=== PATIENT | female | born 1990 | race Hispanic/Latino ===

== ENCOUNTER 2017-11-22 20:53 | Emergency (ER) | payer SELFPAY ==
[2017-11-22 21:56] LABS: #Basophils 0.1 thou/uL (0.0-0.2); #Eosinphils 0.1 thou/uL (0.0-0.7); #Lymphocytes 1.9 thou/uL (1.20-3.40); #Monocytes 0.6 thou/uL (0.11-0.59); #Neutrophils 7.3 thou/uL (1.40-6.50); %Basophils 0.9 % (0.0-1.0); %Eosinophils 0.8 % (0.0-10.0); %Lymphocytes 19.3 % (21.0-51.0); %Monocytes 5.9 % (0.0-10.0); %Neutrophils 73.2 % (42.0-75.0); Hemoglobin 13.8 g/dL (12.0-16.0); Mean Corpuscular HGB CONC 34.3 g/dL (32.0-36.0); Mean Corpuscular Hemoglobin 30.1 pg (27.0-31.0); Mean Corpuscular Volume 87.8 fl (81.0-99.0); Mean Platelet Volume 8.9 fL (7.4-10.4); Platelet Count 247 thou/uL (130-400); RBC Distribution Width 11.5 % (11.5-14.5); Red Blood Cell (RBC) Count 4.57 mill/uL (4.20-5.40)
[2017-11-22 22:10] LABS: ALT (SGPT) 15 U/L (8-55); AST (SGOT) 20 U/L (5-34); Albumin 4.6 g/dL (3.5-5.0); Alkaline Phosphatase 92 U/L (40-150); Anion Gap 15 mmol/L (10-20); BUN (Urea Nitrogen) 7 mg/dL (7.0-18.7); Bilirubin, Total 0.5 mg/dL (0.2-1.2); Calc. Creatinine Clearance 0 mL/min (70-130); Calcium 9.9 mg/dL (7.8-10.44); Carbon Dioxide 22 mmol/L (22-29); Chloride 106 mmol/L (98-107); Estimated GFR-MDRD Greater than 90; Globulin 3.3 g/dL (2.4-3.5); Glucose 92 mg/dL (70-105); Potassium 3.5 mmol/L (3.5-5.1); Protein, Total 7.9 g/dL (6.0-8.3); Sodium 139 mmol/L (136-145)
[2017-11-22 22:15] LABS: CKMB 0.3 ng/mL (0-6.6); Troponin I Less than 0.010 ng/mL (< 0.028)
[2017-11-22 22:21] LABS: Acetaminophen Less than 6.0 mcg/mL (10.0-30.0); Alcohol Less than 10 mg/dL (Less than 10); Salicylate Less than 8.0 mg/dL (15.0-30.0)
--- NOTE | 2017-11-22 22:30 | RAD ---
SINGLE VIEW OF THE CHEST 11/22/17 COMPARISON: None. HISTORY: Shortness of breath and syncope. FINDINGS: Single view of the chest shows a normal sized cardiomediastinal silhouette. There is no evidence of c onsolidation, mass, or pleural effusion. The bones are unremarkable. IMPRESSION: No evidence of acute cardiopulmonary disease. POS: [facility]
[2017-11-22] MEDS ORDERED: Acetaminophen 500 MG TAB ONE (22:31)
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
[2017-11-23 00:21] LABS: Bilirubin Negative (Negative); Blood, Urine Negative (Negative); Clarity CLEAR (Clear); Glucose, Urine (Dipstick) Negative (Negative); Leukocyte Negative (Negative); Nitrite Negative (Negative); Pregnancy Test - Urine (BHCG) Negative (Negative); Pregu Control Background? CLEAR/WHITE (CLR/WHITE); Pregu Control Bar Appear? YES (CONTROL BAR); Protein, Urine (Dipstick) Negative (Neg-Trace); Specific Gravity, Urine 1.007 (1.002-1.036); Urobilinogen 0.2 mg/dL (0.2-1.0); pH, Urine 8.5 (5.0-9.0)
[2017-11-23 00:22] LABS: Specific Gravity 1.007 (1.002-1.036)
[2017-11-23 00:30] LABS: Amphetamine Not Detected (NotDetected); Barbiturates Screen Not Detected (NotDetected); Benzodiazepine Screen Not Detected (NotDetected); Cocaine Metabolite Screen Not Detected (NotDetected); Medtox Control Line Valid? VALID (VALID); Medtox Reader # READER 4; Methadone Not Detected (NotDetected); Methamphetamine Not Detected (NotDetected); Opiate Screen Not Detected (NotDetected); Oxycodone Screen Not Detected (NotDetected); Phencyclidine (PCP) Not Detected (NotDetected); THC/Cannabinoid Screen Not Detected (NotDetected); Tricyclic Screen Not Detected (NotDetected)
== END 2017-11-23 01:04 | disposition home or self-care (01) ==
LOC: ERS 20:53
DX: S06.9X9A Unspecified intracranial injury with loss of consciousness of unspecified duration, initial encounter (principal); F07.81 Postconcussional syndrome; J45.909 Unspecified asthma, uncomplicated; F17.210 Nicotine dependence, cigarettes, uncomplicated; W22.8XXA Striking against or struck by other objects, initial encounter; Y92.815 Train as the place of occurrence of the external cause
CPT/HCPCS: 70450; 71045; 72125; 80053; 80306; 80307; 81003; 81025; 82553; 84443; 84484; 85025; 93005; 96360; 96361

== ENCOUNTER 2021-11-09 09:20 | Inpatient (IN) | payer SELFPAY ==
[~2021-11-09 09:20] MED LIST: Iopamidol-370 76% 500 ML 1 ML ONE
[2021-11-09 09:44] LABS: #Eosinphils 0.3 thou/uL (0.0-0.7); #Lymphocytes 2.6 thou/uL (1.20-3.40); #Monocytes 0.5 thou/uL (0.11-0.59); #Neutrophils 4.6 thou/uL (1.40-6.50); %Basophils 0.4 % (0.0-1.0); %Eosinophils 3.4 % (0.0-10.0); %Lymphocytes 32.7 % (21.0-51.0); %Neutrophils 57.5 % (42.0-75.0); Hemoglobin 14.6 g/dL (12.0-16.0); Mean Corpuscular HGB CONC 34.4 g/dL (32.0-36.0); Mean Corpuscular Hemoglobin 30.9 pg (27.0-31.0); Mean Corpuscular Volume 89.8 fL (78.0-98.0); Mean Platelet Volume 7.9 fL (7.4-10.4); Platelet Count 260 thou/uL (130-400); Red Blood Cell (RBC) Count 4.75 mill/uL (4.20-5.40); White Blood Cell (WBC) Count 7.9 thou/uL (4.8-10.8)
[2021-11-09 09:57] LABS: PTT 34.8 sec (22.9-36.1)
[2021-11-09 09:58] LABS: ALT (SGPT) 40 U/L (8-55); AST (SGOT) 26 U/L (5-34); Albumin 4.4 g/dL (3.5-5.0); Alkaline Phosphatase 98 U/L (40-110); Anion Gap 14 mmol/L (10-20); BUN (Urea Nitrogen) 18 mg/dL (7.0-18.7); Bilirubin, Total 0.7 mg/dL (0.2-1.2); Calc. Creatinine Clearance 0 mL/min (70-130); Calcium 9.4 mg/dL (7.8-10.44); Carbon Dioxide 23 mmol/L (22-29); Chloride 105 mmol/L (98-107); Globulin 3.7 g/dL (2.4-3.5); Glucose 89 mg/dL (70-105); Potassium 3.8 mmol/L (3.5-5.1); Protein, Total 8.1 g/dL (6.0-8.3); Sodium 138 mmol/L (136-145)
[2021-11-09] MEDS ORDERED: Metoclopramide HCl 10 MG/2 ML VIAL ONE (11:08)
[2021-11-09] MEDS ORDERED: Aspirin Chewable 81 MG TAB ONE (11:08)
[2021-11-09] MEDS ORDERED: diphenhydrAMINE 50 MG/ML VIAL ONE (11:08)
[2021-11-09] MEDS ORDERED: hydrALAZINE 20 MG/ML VIAL SLOW IVP PRN (11:28)
[2021-11-09] MEDS ORDERED: Ondansetron PF 4 MG/2 ML Vial IVP PRN (11:28)
[2021-11-09] MEDS ORDERED: Ondansetron ODT 4 MG TAB PO PRN (11:28)
[2021-11-09 12:04] LABS: Bilirubin Negative (Negative); Blood, Urine Negative (Negative); Clarity Clear (Clear); Glucose, Urine (Dipstick) Normal (Negative); Ketone, Urine Trace mg/dL (Negative); Leukocyte Negative Leu/uL (Negative); Nitrite Negative (Negative); Protein, Urine (Dipstick) Negative (Neg-Trace); Urobilinogen Normal mg/dL (Less than 2)
[2021-11-09 12:11] LABS: Pregnancy Test - Urine (BHCG) Negative (Negative); Pregu Control Background? CLEAR/WHITE (CLR/WHITE); Pregu Control Bar Appear? YES (CONTROL BAR); Specific Gravity 1.059 (1.002-1.036); Specific Gravity, Urine 1.059 (1.002-1.036)
[2021-11-09 12:12] LABS: Hemoglobin A1c 5.3 % (4.0-6.0)
[2021-11-09 19:04] VITALS: BMI 26.4
[2021-11-09] MEDS: Atorvastatin Calcium 40 MG TAB PO SCH (19:58)
[2021-11-09] MEDS: Acetaminophen 325 MG TAB PO PRN ×2 (19:58→23:58)
[2021-11-09 23:47] LABS: Amphetamine Not Detected (NotDetected); Barbiturates Screen Not Detected (NotDetected); Benzodiazepine Screen Not Detected (NotDetected); Cocaine Metabolite Screen Not Detected (NotDetected); Methadone Not Detected (NotDetected); Methamphetamine Not Detected (NotDetected); Opiate Screen Not Detected (NotDetected); Oxycodone Screen Not Detected (NotDetected); Phencyclidine (PCP) Not Detected (NotDetected); THC/Cannabinoid Screen Not Detected (NotDetected); Tricyclic Screen Not Detected (NotDetected)
[2021-11-10 00:55] LABS: SARS-CoV-2 PCR by NAA Not Detected (NotDetected)
[2021-11-10] MEDS: Acetaminophen 325 MG TAB PO PRN (06:10)
[2021-11-10 06:12] LABS: #Eosinphils 0.3 thou/uL (0.0-0.7); #Lymphocytes 2.9 thou/uL (1.20-3.40); #Monocytes 0.6 thou/uL (0.11-0.59); #Neutrophils 2.4 thou/uL (1.40-6.50); %Basophils 0.6 % (0.0-1.0); %Eosinophils 5.2 % (0.0-10.0); %Monocytes 9.9 % (0.0-10.0); %Neutrophils 38.3 % (42.0-75.0); Hemoglobin 12.3 g/dL (12.0-16.0); Mean Corpuscular HGB CONC 33.6 g/dL (32.0-36.0); Mean Corpuscular Hemoglobin 30.4 pg (27.0-31.0); Mean Corpuscular Volume 90.7 fL (78.0-98.0); Mean Platelet Volume 7.9 fL (7.4-10.4); Platelet Count 211 thou/uL (130-400); RBC Distribution Width 10.7 % (11.5-14.5); Red Blood Cell (RBC) Count 4.06 mill/uL (4.20-5.40); White Blood Cell (WBC) Count 6.3 thou/uL (4.8-10.8)
[2021-11-10 06:45] LABS: Anion Gap 12 mmol/L (10-20); BUN (Urea Nitrogen) 16 mg/dL (7.0-18.7); Calc. Creatinine Clearance 117 mL/min (70-130); Calcium 8.3 mg/dL (7.8-10.44); Carbon Dioxide 22 mmol/L (22-29); Cardiac Risk 2.8 (Less than 4.5); Chloride 106 mmol/L (98-107); Cholesterol 130 mg/dl (< 200 Desired); Glucose 107 mg/dL (70-105); HDL Cholesterol 46 mg/dL (>60 Neg Risk); LDL Cholesterol, Calculated 74 mg/dL; Potassium 3.5 mmol/L (3.5-5.1); Sodium 136 mmol/L (136-145); Triglycerides 48 mg/dL (Less than 150)
[2021-11-10] MEDS ORDERED: traMADol HCl 50 MG TAB PO PRN (08:51)
[2021-11-10] MEDS ORDERED: Enoxaparin Sodium 40 MG/0.4 ML SYRINGE SC SCH (09:00)
[2021-11-10] MEDS ORDERED: Ketorolac Tromethamine 30 MG/ML VIAL IVP SCH (09:00)
[2021-11-10] MEDS: Aspirin 81 mg Enteric Coated Tablet PO SCH (09:48)
[2021-11-10] MEDS ORDERED: Prochlorperazine Edisylate 10 MG in Sodium Chloride 0.9% 50 ML IVPB SCH ×2 (14:00→20:00)
[2021-11-10] MEDS: diphenhydrAMINE 50 MG/ML VIAL IVP SCH ×2 (15:43→22:07)
[2021-11-10] MEDS ORDERED: Ketorolac Tromethamine 30 MG/ML VIAL IVP PRN (17:00)
[2021-11-10] MEDS: Atorvastatin Calcium 40 MG TAB PO SCH (21:00)
[2021-11-10] MEDS: Prochlorperazine Edisylate 10 MG in Sodium Chloride 0.9% 50 ML IVPB SCH (23:06)
[2021-11-11] MEDS: diphenhydrAMINE 50 MG/ML VIAL IVP SCH ×4 (04:30→20:46)
[2021-11-11] MEDS: Prochlorperazine Edisylate 10 MG in Sodium Chloride 0.9% 50 ML IVPB SCH ×2 (05:13→11:09)
[2021-11-11 05:55] LABS: #Basophils 0.1 thou/uL (0.0-0.2); #Eosinphils 0.3 thou/uL (0.0-0.7); #Lymphocytes 2.8 thou/uL (1.20-3.40); #Monocytes 0.5 thou/uL (0.11-0.59); #Neutrophils 3.6 thou/uL (1.40-6.50); %Basophils 0.9 % (0.0-1.0); %Eosinophils 4.1 % (0.0-10.0); %Monocytes 6.8 % (0.0-10.0); %Neutrophils 49.1 % (42.0-75.0); Hemoglobin 12.3 g/dL (12.0-16.0); Mean Corpuscular HGB CONC 32.2 g/dL (32.0-36.0); Mean Corpuscular Hemoglobin 29.2 pg (27.0-31.0); Mean Corpuscular Volume 90.8 fL (78.0-98.0); Mean Platelet Volume 8.4 fL (7.4-10.4); Platelet Count 228 thou/uL (130-400); Red Blood Cell (RBC) Count 4.22 mill/uL (4.20-5.40); White Blood Cell (WBC) Count 7.2 thou/uL (4.8-10.8)
[2021-11-11 06:30] LABS: Anion Gap 12 mmol/L (10-20); BUN (Urea Nitrogen) 12 mg/dL (7.0-18.7); Calc. Creatinine Clearance 111 mL/min (70-130); Calcium 8.7 mg/dL (7.8-10.44); Carbon Dioxide 22 mmol/L (22-29); Chloride 108 mmol/L (98-107); Glucose 87 mg/dL (70-105); Potassium 3.8 mmol/L (3.5-5.1); Sodium 138 mmol/L (136-145)
[2021-11-11] MEDS: Aspirin 81 mg Enteric Coated Tablet PO SCH (07:54)
[2021-11-11] MEDS: Acetaminophen 325 MG TAB PO PRN (07:54)
[2021-11-11] MEDS ORDERED: diphenhydrAMINE 50 MG/ML VIAL IVP SCH (10:15)
[2021-11-11] MEDS ORDERED: SUMAtriptan Succinate 6 MG/0.5 ML VIAL SC SCH (13:30)
[2021-11-11] MEDS ORDERED: Metoclopramide HCl 10 MG/2 ML VIAL IVP SCH (18:00)
[2021-11-11] MEDS ORDERED: Dihydroergotamine Mesylate 1 MG/ML AMP SLOW IVP SCH (18:00)
[2021-11-11] MEDS: Atorvastatin Calcium 40 MG TAB PO SCH (20:46)
[2021-11-11] MEDS ORDERED: Morphine 2 MG/ML VIAL SLOW IVP SCH (22:15)
[2021-11-12 04:57] LABS: #Eosinphils 0.2 thou/uL (0.0-0.7); #Lymphocytes 2.3 thou/uL (1.20-3.40); #Neutrophils 7.6 thou/uL (1.40-6.50); %Basophils 0.3 % (0.0-1.0); %Lymphocytes 20.3 % (21.0-51.0); %Monocytes 8.9 % (0.0-10.0); %Neutrophils 68.5 % (42.0-75.0); Hemoglobin 13.7 g/dL (12.0-16.0); Mean Corpuscular HGB CONC 33.3 g/dL (32.0-36.0); Mean Corpuscular Hemoglobin 30.3 pg (27.0-31.0); Mean Corpuscular Volume 90.8 fL (78.0-98.0); Mean Platelet Volume 7.8 fL (7.4-10.4); Platelet Count 235 thou/uL (130-400); RBC Distribution Width 10.9 % (11.5-14.5); Red Blood Cell (RBC) Count 4.53 mill/uL (4.20-5.40); White Blood Cell (WBC) Count 11.2 thou/uL (4.8-10.8)
[2021-11-12 05:26] LABS: Anion Gap 14 mmol/L (10-20); BUN (Urea Nitrogen) 10 mg/dL (7.0-18.7); Calc. Creatinine Clearance 111 mL/min (70-130); Carbon Dioxide 20 mmol/L (22-29); Chloride 107 mmol/L (98-107); Glucose 90 mg/dL (70-105); Potassium 4.1 mmol/L (3.5-5.1); Sodium 137 mmol/L (136-145)
[2021-11-12] MEDS: Aspirin 81 mg Enteric Coated Tablet PO SCH (08:50)
[2021-11-12 12:04] LABS: ANA Symphony (Qualitative) Equivocal: See Note (Negative); ANA Symphony (Quantitative) 0.7 Ratio (< 0.7 Negative); dsDNA IgG Antibody 0.9 IU/mL (<10 Negative)
[2021-11-12] MEDS: Acetaminophen 325 MG TAB PO PRN (14:53)
[2021-11-12 15:33] VITALS: BP 111/73; TEMP 98.4
[2021-11-12] MEDS ORDERED: Artificial Tear Sol 15 ML BOT L EYE PRN (16:12)
[2021-11-12] MEDS ORDERED: predniSONE 20 MG TAB PO SCH (16:15)
[2021-11-12] MEDS ORDERED: valACYclovir 500 MG TAB PO SCH (16:15)
== END 2021-11-12 17:44 | disposition home or self-care (01) | DRG 103 ==
LOC: ERS 09:20 → ERHOLD 11:36 → NEURO 16:50
PROVIDERS: ADMIT Family Medicine; ATTEND Internal Medicine
DX: G43.909 Migraine, unspecified, not intractable, without status migrainosus (principal); J45.909 Unspecified asthma, uncomplicated; F17.210 Nicotine dependence, cigarettes, uncomplicated; G93.0 Cerebral cysts; F90.9 Attention-deficit hyperactivity disorder, unspecified type; Z20.822 Contact with and (suspected) exposure to COVID-19; G51.0 Bell's palsy; Z79.899 Other long term (current) drug therapy
CPT/HCPCS: 36415; 36416; 70450; 70496; 70498; 70551; 80048; 80053; 80061; 80306; 81003; 81025; 83036; 83735; 84484; 85025; 85652; 85730; 86038; 86140; 86225; 93005; 93010; 93306; 96374; 96375; J0780; J1110; J1200; J1885; J2270; J2765; J3030; J7512; Q9967; U0003; U0005